=== PATIENT | female | born 1955 | race American Indian/Alaskan Native ===

== ENCOUNTER 2017-03-15 08:43 | Outpatient (CLI) | payer BC | END 2017-03-15 08:44 | disposition home or self-care (01) | LOC: LAB 08:43 | PROVIDERS: ATTEND Specialist | DX: C73 Malignant neoplasm of thyroid gland (principal); E89.0 Postprocedural hypothyroidism | CPT/HCPCS: 36415; 84439; 84443 ==

== ENCOUNTER 2017-04-07 09:51 | Day surgery (SDC) | payer BC ==
--- NOTE | 2017-04-07 12:16 | Anesthesia Day of Surgery ---
Anesthesia Day of Surgery - Day of Surgery Patient Examined: Yes Patient H&P Reviewed: Yes Patient is NPO: Yes
--- NOTE | 2017-04-07 12:16 | Anesthesia Consultation ---
Anesthesia Consult and Med Hx Date of service: 04/07/17 - Airway Anesthetic Teeth Evaluation: Good ROM Head & Neck: Adequate Mental/Hyoid Distance: Adequate Mallampati Class: Class II Intubation Access Assessment: Probably Good - Pulmonary Exam CTA: Yes - Cardiac Exam Cardiac Exam: RRR - Pre-Operative Health Status ASA Pre-Surgery Classification: ASA3 Proposed Anesthetic Plan: MAC - Pulmonary Hx Smoking: Yes (quit 37 years ago) - Cardiovascular System Hx Hypertension: Yes Hx Heart Attack/AMI: No Hx Valvular Heart Disease: Yes (MVP) - Central Nervous System Hx Seizures: No CVA: No - Endocrine Hx Renal Disease: No Hx Liver Disease: No Hx Non-Insulin Dependent Diabetes: No Hx Thyroid Disease: No (Lupus) Hx Hypothyroidism: Yes (thyroid CA s/p thyroidectomy) - Hematic Hx Anemia: Yes Hx Sickle Cell Disease: No - Other Systems Hx Cancer: Yes (thyroid ca) - Additional Comments Anesthesia Medical History Comments: PONV
[2017-04-07] MEDS ORDERED: DIPRIVAN 10 MG/ML IV ONE ×2 (12:18)
[2017-04-07 13:16] VITALS: BP 144/80
--- NOTE | 2017-04-07 13:23 | Post Anesthesia Evaluation ---
- Post Anesthesia Evaluation Patient Participated: Yes Airway Patent: Yes Stable Respiratory Function: Yes Nausea/Vomiting: No Temp > 96.8F: Yes Pain Manageable: Yes Adequeate Hydration: Yes Anesthesia Complications: No Block Receding Appropriately: Not Applicable Patient on Ventilator: No
[2017-04-07] MEDS ORDERED: NACL 0.9% 1000 ML 1,000 ML IV SCH (14:00)
--- NOTE | 2017-04-07 16:04 | History and Physical Report ---
HISTORY OF PRESENT ILLNESS: This is a 61-year-old female with an underlying history of hypertension, prior history of thyroid cancer for which she has had surgery and radiation treatment. She has a family history of cancer. The patient's father had prostate cancer. At present, she is having changes in her bowel habits and because of her age being assessed for possible colon polyps. She is said to have had colon polyps in the past that were removed several years ago. ALLERGIES: No known allergies. No cardiac issues. SOCIAL HISTORY: Denies any history of smoking or alcohol use. Has had a flu shot. MEDICATIONS: She has a history of taking MiraLax, Synthroid, verapamil, Maxzide, calcitriol, Plaquenil, and Calvid. PHYSICAL EXAMINATION: VITAL SIGNS: Weight is 101 pounds, height is 5 feet 6 inches, pulse is 77, blood pressure 155/94, afebrile. HEENT: Exam showed no JVD. LUNGS: Clear to auscultation. CARDIOVASCULAR: Normal. ABDOMEN: Soft. Bowel sounds present. NEUROLOGIC: The patient is alert and oriented. ASSESSMENT: Changes in bowel habits, history of colon polyps, prior history of thyroid cancer, family history of prostate cancer, hypertension, hypothyroidism. PLAN: To do a colonoscopy at [facility] on 04/07/2017. JOB# [id number] OLIVIA/YESY
--- NOTE | 2017-04-07 17:21 | Operative Report ---
PROCEDURE: Colonoscopy. INDICATIONS: This is a 61-year-old female with underlying history of thyroid cancer for which she has had thyroid surgery. Family history of cancer. The patient's father had prostate cancer. She has lately been noticing some changes in her bowel habit. She also has an underlying history of hypertension and hypothyroidism. Colonoscopy was done to assess for the problem. Procedure was done. DESCRIPTION OF PROCEDURE: After informed consent with MAC anesthesia. Initial rectal exam was unremarkable. The instrument was passed through the rectum onto the cecum, which was identified ileocecal valve and appendiceal orifice. Visualization was fair. There was some fluid within the lumen of the colon that was suctioned out. The patient appeared to have melanosis coli secondary to using laxatives containing senna on a long-term basis. The cecum, ascending colon, transverse colon, descending colon and sigmoid showed normal mucosa. There was no evidence of any polyps, colitis or diverticular disease other than for the presence of melanosis coli in the rectum showed some minor internal hemorrhoids on the retroverted view. IMPRESSION: Colon polyp screening. No colon polyps noted. Presence of melanosis coli. No evidence of any diverticular disease or colitis. Minor internal hemorrhoids. PLAN: To have the patient check her thyroid function and see if the thyroid medications need to be adjusted. Otherwise, the patient will be tried with some Amitiza or Linzess to help with her long complains of chronic constipation. JOB# [id number] OLIVIA/YESY
== END 2017-04-07 09:52 | disposition home or self-care (01) ==
LOC: GIO 09:51
DX: K63.89 Other specified diseases of intestine (principal); K64.8 Other hemorrhoids; I10 Essential (primary) hypertension; E03.9 Hypothyroidism, unspecified; D64.9 Anemia, unspecified; Z85.850 Personal history of malignant neoplasm of thyroid; Z87.891 Personal history of nicotine dependence; Z80.42 Family history of malignant neoplasm of prostate; Z79.899 Other long term (current) drug therapy
CPT/HCPCS: 45378; J2704; J7030

== ENCOUNTER 2017-06-30 10:07 | Outpatient (CLI) | payer BC ==
[2017-06-30 10:39] LABS: Hemoglobin 10.4 gm/dl (10.1-14.3); Mean Corpuscular HGB Conc 33 % (30-34); Mean Corpuscular Hemoglobin 28 pg (28-32); Mean Corpuscular Volume 85 fl (79-97); Platelet Count 265 K/mm3 (140-440); Red Blood Count 3.75 M/mm3 (3.65-5.03); Red Cell Distribution Width 15.8 % (13.2-15.2); White Blood Count 4.3 K/mm3 (4.5-11.0)
[2017-06-30 10:50] LABS: Bilirubin,Urine NEG (Negative); Blood,Urine SM (Negative); Ketones,Urine NEG (Negative); Leukocyte Esterase,Urine NEG (Negative); Mucus,Urine FEW /HPF; Nitrite,Urine NEG (Negative); Protein,Urine <15 mg/dL mg/dL (Negative); Urobilinogen,Urine < 2.0 mg/dL (<2.0)
[2017-06-30 11:05] LABS: Erythrocyte Sedimentation Rate 78 mm/Hr (0-20)
[2017-06-30 11:06] LABS: Alanine Aminotransferase 13 units/L (7-56); Albumin 3.8 g/dL (3.9-5); Albumin/Globulin Ratio 1.1 %; Alkaline Phosphatase 66 units/L (35-129); Anion Gap 18 mmol/L; BUN/Creatinine Ratio 26.66; Blood Urea Nitrogen 16 mg/dL (7-17); Carbon Dioxide 25 mmol/L (22-30); Chloride 103.5 mmol/L (98-107); Glucose 77 mg/dL (65-100); Potassium 4.3 mmol/L (3.6-5.0); Sodium 142 mmol/L (137-145); Total Protein 7.4 g/dL (6.3-8.2)
== END 2017-06-30 10:08 | disposition home or self-care (01) ==
LOC: LAB 10:07
PROVIDERS: ATTEND Internal Medicine Rheumatology
DX: I10 Essential (primary) hypertension (principal); M13.0 Polyarthritis, unspecified; M32.9 Systemic lupus erythematosus, unspecified; E78.00 Pure hypercholesterolemia, unspecified; E03.9 Hypothyroidism, unspecified; D64.9 Anemia, unspecified; Z87.891 Personal history of nicotine dependence
CPT/HCPCS: 36415; 80053; 81001; 85027; 85652

== ENCOUNTER 2017-08-11 11:45 | Outpatient (CLI) | payer BC ==
--- NOTE | 2017-08-11 12:18 | XRay Report ---
RIGHT HIP, 2 views: History: Right hip pain. The bony architecture is intact without evidence of fracture or dislocation. No significant soft tissue abnormality is seen. IMPRESSION: Normal right hip.
[2017-08-11 12:54] LABS: Basophils % (Auto) 1.1 % (0.0-1.8); Eosinophils % (Auto) 1.9 % (0.0-4.3); Hematocrit 32.2 % (30.3-42.9); Hemoglobin 10.8 gm/dl (10.1-14.3); Mean Corpuscular HGB Conc 34 % (30-34); Mean Corpuscular Hemoglobin 28 pg (28-32); Mean Corpuscular Volume 83 fl (79-97); Platelet Count 271 K/mm3 (140-440); Red Blood Count 3.87 M/mm3 (3.65-5.03); Red Cell Distribution Width 15.7 % (13.2-15.2); White Blood Count 4.7 K/mm3 (4.5-11.0)
[2017-08-11 13:12] LABS: Alanine Aminotransferase 13 units/L (7-56); Albumin 4.2 g/dL (3.9-5); Albumin/Globulin Ratio 1.1 %; Alkaline Phosphatase 64 units/L (35-129); Anion Gap 18 mmol/L; Blood Urea Nitrogen 22 mg/dL (7-17); Calcium 9.9 mg/dL (8.4-10.2); Carbon Dioxide 26 mmol/L (22-30); Chloride 102.1 mmol/L (98-107); Glucose 86 mg/dL (65-100); Potassium 3.7 mmol/L (3.6-5.0); Sodium 142 mmol/L (137-145); Total Protein 7.9 g/dL (6.3-8.2)
[2017-08-11 13:28] LABS: Cholesterol 127 mg/dL (50-199); HDL Cholesterol 46 mg/dL (40-59); LDL Cholesterol,Direct 72 mg/dL (50-130); Triglycerides 47 mg/dL (2-149)
== END 2017-08-11 11:46 | disposition home or self-care (01) ==
LOC: XRAY 11:45
PROVIDERS: ATTEND Nurse Practitioner
DX: Z01.419 Encounter for gynecological examination (general) (routine) without abnormal findings (principal); I10 Essential (primary) hypertension; E78.2 Mixed hyperlipidemia; M25.551 Pain in right hip; E03.9 Hypothyroidism, unspecified; Z87.891 Personal history of nicotine dependence
CPT/HCPCS: 36415; 80053; 80061; 85025

== ENCOUNTER 2017-11-08 10:12 | Outpatient (CLI) | payer BC ==
[2017-11-08 11:08] LABS: Hematocrit 33.4 % (30.3-42.9); Mean Corpuscular HGB Conc 33 % (30-34); Mean Corpuscular Hemoglobin 28 pg (28-32); Mean Corpuscular Volume 85 fl (79-97); Platelet Count 286 K/mm3 (140-440); Red Blood Count 3.95 M/mm3 (3.65-5.03); Red Cell Distribution Width 16.2 % (13.2-15.2); White Blood Count 5.1 K/mm3 (4.5-11.0)
[2017-11-08 11:41] LABS: Erythrocyte Sedimentation Rate 57 mm/Hr (0-20)
--- NOTE | 2017-11-08 12:28 | Mammography Report ---
BILATERAL MAMMOGRAM: FINDINGS: The breasts are almost entirely fat (<25% glandular). No mass, distortion, suspicious calcification, or skin change is seen. No significant change when compared to prior examination in September 2016. CAD was utilized. IMPRESSION: Negative mammogram. There is no mammographic evidence of malignancy. RECOMMENDATION: Follow-up per ACS guidelines. BI-RADS CATEGORY: 1 = Negative ACR BI-RADS MAMMOGRAPHIC CODES: 0 = Needs additional imaging evaluation; 1 = Negative; 2 = Benign; 3 = Probably benign; 4 = Suspicious; 5 = Malignant; 6 = Known biopsy-proven malignancy COMMENT: 1. Dense breast tissue, i.e., adenosis, fibrocystic changes, etc., may obscure an underlying neoplasm. 2. Approximately 10% of cancers are not detected with mammography. 3. A negative mammography report should not delay biopsy if a clinically suspicious mass is present. COMMENT: Patient follow-up letters are generated in [employer].
== END 2017-11-08 10:13 | disposition home or self-care (01) ==
LOC: MAMMO 10:12
PROVIDERS: ATTEND Internal Medicine
DX: Z12.31 Encounter for screening mammogram for malignant neoplasm of breast (principal); M32.9 Systemic lupus erythematosus, unspecified; I10 Essential (primary) hypertension; E78.00 Pure hypercholesterolemia, unspecified; E03.9 Hypothyroidism, unspecified; D64.9 Anemia, unspecified; Z87.891 Personal history of nicotine dependence
CPT/HCPCS: 36415; 82565; 85027; 85652; G0202; 77067

== ENCOUNTER → 2018-07-06 | Outpatient (CLI) | payer BC ==
[2018-07-06 11:54] LABS: Hemoglobin 10.8 gm/dl (10.1-14.3); Mean Corpuscular HGB Conc 34 % (30-34); Mean Corpuscular Hemoglobin 29 pg (28-32); Mean Corpuscular Volume 85 fl (79-97); Platelet Count 267 K/mm3 (140-440); Red Blood Count 3.76 M/mm3 (3.65-5.03); Red Cell Distribution Width 16.6 % (13.2-15.2)
[2018-07-06 12:35] LABS: Free T4 (Free Thyroxine) 1.95 ng/dL (0.76-1.46)
== END | disposition home or self-care (01) ==
LOC: LAB 11:16
PROVIDERS: ATTEND Internal Medicine Rheumatology
DX: M32.9 Systemic lupus erythematosus, unspecified (principal); I10 Essential (primary) hypertension; E78.00 Pure hypercholesterolemia, unspecified; E03.9 Hypothyroidism, unspecified; Z87.891 Personal history of nicotine dependence; Z90.89 Acquired absence of other organs
CPT/HCPCS: 36415; 82565; 82728; 84439; 84443; 85027; 86800

== ENCOUNTER 2018-11-29 10:00 | Outpatient (CLI) | payer BC ==
--- NOTE | 2018-11-29 16:32 | Mammography Report ---
BILATERAL DIGITAL SCREENING MAMMOGRAM with CAD: 11/29/18 10:00:00 CLINICAL: Routine screening. COMPARISON:11/08/17 and 09/22/16 FINDINGS: The breasts are almost entirely fatty.A left periareolar linear asymmetry is not not significantly changed compared to previous exams. No mass, architectural distortion or suspicious calcifications. IMPRESSION: No mammographic evidence of malignancy. BI-RADS CATEGORY: 2 - - Benign RECOMMENDATION: Routine mammographic screening in one year. COMMENT: Patient follow-up letters are generated by our [employer] application.
== END 2018-11-29 10:01 | disposition home or self-care (01) ==
LOC: SPVWC 10:00
PROVIDERS: ATTEND Internal Medicine
DX: Z12.31 Encounter for screening mammogram for malignant neoplasm of breast (principal); I10 Essential (primary) hypertension; E78.00 Pure hypercholesterolemia, unspecified; E03.9 Hypothyroidism, unspecified; Z87.891 Personal history of nicotine dependence
CPT/HCPCS: 77067

== ENCOUNTER 2019-03-07 10:24 | Outpatient (CLI) | payer BC ==
[2019-03-07 11:06] LABS: Hematocrit 32.2 % (30.3-42.9); Hemoglobin 10.6 gm/dl (10.1-14.3); Mean Corpuscular HGB Conc 33 % (30-34); Mean Corpuscular Volume 86 fl (79-97); Platelet Count 305 K/mm3 (140-440); Red Blood Count 3.74 M/mm3 (3.65-5.03); Red Cell Distribution Width 16.9 % (13.2-15.2)
[2019-03-07 11:36] LABS: Erythrocyte Sedimentation Rate 62 mm/Hr (0-20)
== END 2019-03-07 10:25 | disposition home or self-care (01) ==
LOC: LAB 10:24
PROVIDERS: ATTEND Internal Medicine Rheumatology
DX: M32.9 Systemic lupus erythematosus, unspecified (principal); I10 Essential (primary) hypertension; E78.00 Pure hypercholesterolemia, unspecified; E03.9 Hypothyroidism, unspecified; Z87.891 Personal history of nicotine dependence
CPT/HCPCS: 36415; 82565; 85027; 85652

== ENCOUNTER 2019-03-22 07:28 | Outpatient (CLI) | payer BC ==
--- NOTE | 2019-03-22 09:02 | Ultrasound Report ---
THYROID ULTRASOUND INDICATION: Malignant neoplasm of thyroid gland. Thyroidectomy in 2006 for thyroid carcinoma. COMPARISON: None similar. FINDINGS: Grayscale and color-flow thyroid sonography demonstrates surgically absent thyroid gland. No suspicious abnormal mass or fluid collection noted. Two small lymph nodes incidentally seen, approximately 1.2 x 0.7 cm on the right, image 13 and a slightly elongated, approximately 1.5 x 0.5 cm on the left, image 22. CONCLUSION: No acute significant sonographic abnormality in this patient with prior thyroidectomy, as described. Please correlate. Thank you for the opportunity to participate in this patient's care.
[2019-03-22 09:32] LABS: Alanine Aminotransferase 13 units/L (7-56); Albumin 4.2 g/dL (3.9-5); BUN/Creatinine Ratio 20; Blood Urea Nitrogen 12 mg/dL (7-17); Calcium 9.2 mg/dL (8.4-10.2); Hemolysis Index 2
--- NOTE | 2019-03-22 12:29 | XRay Report ---
RIGHT HIP RADIOGRAPHS INDICATION: Pain. COMPARISON: None similar. FINDINGS: An AP pelvic radiograph with frog-leg projection of the right hip demonstrate intact articulation. Mild right femoral head degenerative spurring laterally. Imaged bilateral SI joints appear intact. Nonobstructive bowel gas pattern. CONCLUSION: No acute radiographic abnormality with mild right hip degenerative changes suspected. Thank you for the opportunity to participate in this patient's care.
--- NOTE | 2019-03-22 12:32 | XRay Report ---
CERVICAL SPINE RADIOGRAPHS INDICATION: Shoulder pain. COMPARISON: None similar. FINDINGS: AP, lateral, open mouth and swimmer's views to evaluate cervical spine demonstrate normal imaged dens with symmetric lateral masses. Few radiopaque dental material. Intact craniocervical articulation on the lateral view with adequate visualization upto T1. Normal vertebral body stature, alignment and disc heights. Slight C4 and C5 degenerative spurring. Small bilateral cervical ribs. Few left lower neck surgical clips. Cardiomegaly not excluded. CONCLUSION: No acute cervical spine radiographic abnormality in this patient with small cervical ribs and left lower neck surgical clips, as described. Please correlate. Thank you for the opportunity to participate in this patient's care.
== END 2019-03-22 07:29 | disposition home or self-care (01) ==
LOC: US 07:28
PROVIDERS: ATTEND Nurse Practitioner Family
DX: C73 Malignant neoplasm of thyroid gland (principal); M25.511 Pain in right shoulder; M25.551 Pain in right hip; M54.12 Radiculopathy, cervical region; I10 Essential (primary) hypertension; E78.00 Pure hypercholesterolemia, unspecified; E89.0 Postprocedural hypothyroidism
CPT/HCPCS: 36415; 72040; 76536; 80053; 84439; 84443; 86800

== ENCOUNTER 2019-05-08 09:33 | Outpatient (CLI) | payer BC ==
--- NOTE | 2019-05-08 09:55 | XRay Report ---
RIGHT SHOULDER, 3 VIEWS: HISTORY: right shoulder pain. Bone mineralization is borderline. There is suggestion of a subtle cortical defect in the lateral humeral head on the externally rotated view. This may represent a small avulsion fracture. This is at the expected insertion site of the supraspinatus tendon. Mild osteoarthritic changes are identified. No evidence for dislocation, ligamentous injury or bone lesion. IMPRESSION: Mild osteoarthritis. Suggestion of a nondisplaced avulsion injury in the lateral humeral head as described. Please correlate with the patient. This could be further evaluated with MRI right shoulder without contrast if needed.
== END 2019-05-08 09:34 | disposition home or self-care (01) ==
LOC: XRAY 09:33
PROVIDERS: ATTEND Internal Medicine
DX: M19.011 Primary osteoarthritis, right shoulder (principal); E78.00 Pure hypercholesterolemia, unspecified; I10 Essential (primary) hypertension; E03.9 Hypothyroidism, unspecified

== ENCOUNTER 2019-06-23 12:24 | Outpatient (CLI) | payer BC ==
[2019-06-23 12:48] LABS: Hematocrit 32.9 % (30.3-42.9); Mean Corpuscular HGB Conc 34 % (30-34); Mean Corpuscular Volume 86 fl (79-97); Platelet Count 271 K/mm3 (140-440); Red Blood Count 3.84 M/mm3 (3.65-5.03); Red Cell Distribution Width 16.8 % (13.2-15.2)
[2019-06-23 12:55] LABS: Bilirubin,Urine NEG (Negative); Blood,Urine NEG (Negative); Color,Urine Yellow (Yellow); Mucus,Urine FEW /HPF; Protein,Urine <15 mg/dL mg/dL (Negative); Urobilinogen,Urine < 2.0 mg/dL (<2.0)
[2019-06-23 13:09] LABS: Protein/Creatinine Ratio,Urine 0.09
[2019-06-23 13:16] LABS: Alanine Aminotransferase 12 units/L (7-56); Albumin 4.1 g/dL (3.9-5); BUN/Creatinine Ratio 15; Blood Urea Nitrogen 12 mg/dL (7-17); Calcium 9.3 mg/dL (8.4-10.2); Hemolysis Index 2
== END 2019-06-23 12:25 | disposition home or self-care (01) ==
LOC: LAB 12:24
PROVIDERS: ATTEND Internal Medicine Rheumatology
DX: M32.9 Systemic lupus erythematosus, unspecified (principal); I10 Essential (primary) hypertension; E78.00 Pure hypercholesterolemia, unspecified; E03.9 Hypothyroidism, unspecified
CPT/HCPCS: 36415; 80053; 81001; 82570; 84156; 85027; 85652; 87086

== ENCOUNTER 2019-06-27 14:02 | Outpatient (CLI) | payer BC ==
[2019-06-27 14:43] LABS: Chol/HDL Ratio 2.66 %
== END 2019-06-27 14:03 | disposition home or self-care (01) ==
LOC: LAB 14:02
PROVIDERS: ATTEND Internal Medicine
DX: E78.2 Mixed hyperlipidemia (principal); E78.00 Pure hypercholesterolemia, unspecified; I10 Essential (primary) hypertension; E03.9 Hypothyroidism, unspecified
CPT/HCPCS: 36415; 80061

== ENCOUNTER 2019-09-29 09:05 | Outpatient (CLI) | payer BC ==
[2019-09-29 09:37] LABS: Hematocrit 30.4 % (30.3-42.9); Hemoglobin 10.3 gm/dl (10.1-14.3); Mean Corpuscular HGB Conc 34 % (30-34); Mean Corpuscular Volume 86 fl (79-97); Platelet Count 266 K/mm3 (140-440); Red Blood Count 3.53 M/mm3 (3.65-5.03); Red Cell Distribution Width 16.6 % (13.2-15.2)
[2019-09-29 09:47] LABS: Bilirubin,Urine NEG (Negative); Blood,Urine SM (Negative); Color,Urine Yellow (Yellow); Mucus,Urine 2+ /HPF; Protein,Urine <15 mg/dL mg/dL (Negative); Urobilinogen,Urine < 2.0 mg/dL (<2.0)
[2019-09-29 09:49] LABS: Creatinine,Urine 193.9 mg/dL (0.1-20.0); Protein/Creatinine Ratio,Urine 0.09
[2019-09-29 10:06] LABS: Erythrocyte Sedimentation Rate 60 mm/Hr (0-20)
== END 2019-09-29 09:06 | disposition home or self-care (01) ==
LOC: LAB 09:05
PROVIDERS: ATTEND Internal Medicine Rheumatology
DX: M32.9 Systemic lupus erythematosus, unspecified (principal); Z87.891 Personal history of nicotine dependence; E03.9 Hypothyroidism, unspecified
CPT/HCPCS: 36415; 81001; 82565; 82570; 84156; 85027; 85652

== ENCOUNTER 2019-12-28 08:09 | Outpatient (CLI) | payer BC ==
[2019-12-28 11:41] LABS: Basophils # (Auto) 0.1 K/mm3 (0.0-0.1); Basophils % (Auto) 1.2 % (0.0-1.8); Eosinophils # (Auto) 0.2 K/mm3 (0.0-0.4); Eosinophils % (Auto) 4.1 % (0.0-4.3); Hematocrit 31.4 % (30.3-42.9); Hemoglobin 10.6 gm/dl (10.1-14.3); Lymphocytes # (Auto) 1.6 K/mm3 (1.2-5.4); Lymphocytes % (Auto) 32.6 % (13.4-35.0); Mean Corpuscular HGB Conc 34 % (30-34); Mean Corpuscular Volume 86 fl (79-97); Monocytes # (Auto) 0.4 K/mm3 (0.0-0.8); Monocytes % (Auto) 7.8 % (0.0-7.3); Platelet Count 280 K/mm3 (140-440); Red Blood Count 3.66 M/mm3 (3.65-5.03); Red Cell Distribution Width 16.6 % (13.2-15.2)
[2019-12-28 11:44] LABS: Bilirubin,Urine NEG (Negative); Blood,Urine MOD (Negative); Color,Urine Yellow (Yellow); Mucus,Urine FEW /HPF; Protein,Urine <15 mg/dL mg/dL (Negative); Urobilinogen,Urine < 2.0 mg/dL (<2.0)
[2019-12-28 12:41] LABS: Alanine Aminotransferase 13 units/L (7-56); Albumin 4.2 g/dL (3.9-5); BUN/Creatinine Ratio 18; Blood Urea Nitrogen 14 mg/dL (7-17); Calcium 9.6 mg/dL (8.4-10.2); Chol/HDL Ratio 3.03 %; HDL Cholesterol 56 mg/dL (40-59); Hemolysis Index 2; LDL Cholesterol,Direct 111 mg/dL (50-130)
== END 2019-12-28 08:10 | disposition home or self-care (01) ==
LOC: LAB 08:09
PROVIDERS: ATTEND Internal Medicine
DX: M32.9 Systemic lupus erythematosus, unspecified (principal); I10 Essential (primary) hypertension; E78.2 Mixed hyperlipidemia
CPT/HCPCS: 36415; 80053; 80061; 81001; 85025; 85652

== ENCOUNTER 2020-01-01 10:20 | Outpatient (CLI) | payer BC ==
--- NOTE | 2020-01-01 14:10 | Mammography Report ---
DIGITAL SCREENING MAMMOGRAM WITH CAD, 01/01/2020 INDICATION: Routine screening mammography. TECHNIQUE: Digital bilateral 2D mammography was obtained in the craniocaudal and mediolateral obliq ue projections. This examination was interpreted with the benefit of Computer-Aided Detection analysi s. COMPARISON: 11/29/2018 FINDINGS: Breast Density: The breasts are almost entirely fatty. There is no evidence of dominant mass, suspicious calcifications or architectural distortion in eithe r breast. IMPRESSION: No mammographic evidence of malignancy. Follow up recommendation: Routine yearly BI-RADS Category 1: Negative. A "normal" or negative report should not discourage follow up or biopsy of a clinically significant f inding. A written summary of these findings will be mailed to the patient. The patient will be entered into a mammography reporting system which will generate a reminder letter for the patient's next appointmen t at the appropriate interval. The [employer] recommends yearly mammograms starting at age 40 and continuing as l luba as a woman is in good health. Breast MRI is recommended for women with an approximate 20-25% or greater lifetime risk of breast cancer, including women with a strong family history of breast or ova daniela cancer or who have been treated for Hodgkin's disease. Signer Name: Harsha Germain MD Signed: 01/01/2020 2:06 PM Workstation Name: [id number]
== END 2020-01-01 10:21 | disposition home or self-care (01) ==
LOC: MAMMO 10:20
PROVIDERS: ATTEND Internal Medicine
DX: Z12.31 Encounter for screening mammogram for malignant neoplasm of breast (principal); N64.89 Other specified disorders of breast
CPT/HCPCS: 77067

== ENCOUNTER 2020-01-29 12:05 | Outpatient (CLI) | payer BC | END 2020-01-29 12:06 | disposition home or self-care (01) | LOC: LAB 12:05 | PROVIDERS: ATTEND Obstetrics & Gynecology | DX: Z01.419 Encounter for gynecological examination (general) (routine) without abnormal findings (principal) | CPT/HCPCS: 36415; 87591 ==

== ENCOUNTER 2020-02-05 08:03 | Emergency (ER) | payer BC, OTHER ==
[2020-02-05] MEDS ORDERED: IBUPROFEN 600 MG TAB PO ONE (08:56)
--- NOTE | 2020-02-05 09:02 | Emergency Department Report ---
ED Fall HPI - General Chief Complaint: Fall Stated Complaint: FALL Time Seen by Provider: 02/05/20 08:42 Source: patient Mode of arrival: Ambulatory Limitations: No Limitations - History of Present Illness Initial Comments: This is a 64-year-old -British female who presents to the emergency room with low back pain status post fall 1 hour prior to arrival. Patient states she had just arrived to work and attempt to sit in a chair when it slipped from behind her causing her to land on her buttocks hitting her left knee on something. Past medical history of lupus, hypertension, and sciatica of right lower extremity. Patient states she always have pain in her right lower leg radiating from her right buttocks to right above right thigh but now starting to experience pain in left thigh. Reports pain is worse with movement. 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 Fall Witnessed: yes, by living facility s Place Fall Occurred: work Loss of Consciousness: none Prolonged Down Time?: no Symptoms Prior to Fall: none Location: buttocks (Bilateral) Location - Extremities: Left: Leg Severity: moderate Severity scale (0 -10): 7 Quality: burning, aching Associated Symptoms: denies - Related Data Home Medications Medication Instructions Recorded Confirmed Last Taken Synthroid 125 mcg PO DAILY 08/04/15 04/07/17 04/07/17 Triamter/Hctz 37.5-25 mg 0.5 tab PO DAILY 08/04/15 04/07/17 04/07/17 Verapamil ER 120 mg PO DAILY 08/04/15 04/07/17 04/06/17 Calcitriol 1 tab PO DAILY 04/07/17 04/07/17 04/07/17 Caltrate 600+D Plus Tablet 1 tab PO DAILY 04/07/17 04/07/17 04/06/17 Meloxicam 15 mg PO DAILY 04/07/17 04/07/17 04/06/17 Plaquenil 1 tab PO DAILY 04/07/17 04/07/17 04/07/17 Previous Rx's Medication Instructions Recorded Last Taken Type Amoxicillin [Trimox CAP] 500 mg PO Q8H #15 capsule 08/04/15 Unknown Rx Naproxen [Naprosyn] 500 mg PO BID PRN #30 tablet 02/05/20 Unknown Rx methOCARBAMOL [Robaxin TAB] 500 mg PO TID PRN #20 tablet 02/05/20 Unknown Rx Allergies Allergy/AdvReac Type Severity Reaction Status Date / Time No Known Allergies Allergy Verified 08/04/15 05:23 ED Review of Systems ROS: Stated complaint: FALL Other details as noted in HPI Constitutional: denies: chills, fever Respiratory: denies: cough, shortness of breath, wheezing Cardiovascular: denies: chest pain, palpitations Gastrointestinal: denies: abdominal pain, nausea, diarrhea Musculoskeletal: back pain. denies: joint swelling, arthralgia Skin: denies: rash, lesions Neurological: denies: headache, weakness, paresthesias Psychiatric: denies: anxiety, depression ED Past Medical Hx - Past Medical History Previous Medical History?: Yes Hx Hypertension: Yes Hx Heart Attack/AMI: No Hx Diabetes: Yes Hx Liver Disease: No Hx Renal Disease: No Hx Sickle Cell Disease: No Hx Arthritis: Yes Hx Seizures: No Additional medical history: LUPUS,BORDERLINE ANEMIA - Surgical History Past Surgical History?: Yes Additional Surgical History: THYROIDECTOMY,CS,GANGLION CYST SURGERY lt ear,HEMORRHOIDECTOMY - Social History Smoking Status: Never Smoker Substance Use Type: None - Medications Home Medications: Home Medications Medication Instructions Recorded Confirmed Last Taken Type Amoxicillin [Trimox CAP] 500 mg PO Q8H #15 capsule 08/04/15 04/07/17 Unknown Rx Synthroid 125 mcg PO DAILY 08/04/15 04/07/17 04/07/17 History Triamter/Hctz 37.5-25 mg 0.5 tab PO DAILY 08/04/15 04/07/17 04/07/17 History Verapamil ER 120 mg PO DAILY 08/04/15 04/07/17 04/06/17 History Calcitriol 1 tab PO DAILY 04/07/17 04/07/17 04/07/17 History Caltrate 600+D Plus Tablet 1 tab PO DAILY 04/07/17 04/07/17 04/06/17 History Meloxicam 15 mg PO DAILY 04/07/17 04/07/17 04/06/17 History Plaquenil 1 tab PO DAILY 04/07/17 04/07/17 04/07/17 History Naproxen [Naprosyn] 500 mg PO BID PRN #30 tablet 02/05/20 Unknown Rx methOCARBAMOL [Robaxin TAB] 500 mg PO TID PRN #20 tablet 02/05/20 Unknown Rx ED Physical Exam - General Limitations: No Limitations General appearance: alert, in no apparent distress, obese - Respiratory Respiratory exam: Present: normal lung sounds bilaterally. Absent: respiratory distress - Cardiovascular Cardiovascular Exam: Present: regular rate, normal rhythm. Absent: systolic murmur, diastolic murmur, rubs, gallop - GI/Abdominal GI/Abdominal exam: Present: soft, normal bowel sounds. Absent: distended, tenderness, guarding, rebound, rigid - Extremities Exam Extremities exam: Present: normal inspection - Back Exam Back exam: Present: full ROM, paraspinal tenderness (L2, L3, L4 ttp, no stepoff or deformity), other (positive straight leg test on left leg). Absent: muscle spasm, vertebral tenderness, rash noted - Neurological Exam Neurological exam: Present: alert, oriented X3, normal gait - Psychiatric Psychiatric exam: Present: normal affect, normal mood - Skin Skin exam: Present: warm, dry, intact, normal color. Absent: rash ED Course Vital Signs 02/05/20 10:51 Temperature 98.8 F Pulse Rate 77 Respiratory 20 Rate Blood Pressure 128/79 [Left] O2 Sat by Pulse 98 Oximetry ED Medical Decision Making - Radiology Data Radiology results: report reviewed LUMBAR SPINE 2 VIEWS INDICATION: Low back pain, fall. COMPARISON: No relevant prior imaging study available. FINDINGS: VERTEBRAE: No acute fracture. Mild dextroscoliosis with grade 1 anterolisthesis at L4-L5. DISC SPACES: Multilevel mild to moderate discogenic degenerative changes. FACET JOINTS: Multilevel facet hypertrophy is most significant at L5-S1. SOFT TISSUES: No significant abnormality. ADDITIONAL FINDINGS: A lap band is partially visualized. IMPRESSION: 1. No acute findings. 2. Mild to moderate lumbar spondylosis. 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 Patient is nontoxic appearing and stable. Vitals are normal. Past medical history of lupus, sciatica of right leg, and hypertension. Obtained x-ray of L- spine with no acute findings. Mild to moderate lumbar spondylosis. Given history, exam, and work-up, there is low suspicion for spine fracture. Positive straight leg test on the left leg. Patient instructed of symptoms being self- limiting. Start muscle relaxants and NSAIDs. They have been given strict return her precautions for delayed possible symptoms. Patient discharged with prompt follow-up with primary care physician. Critical care attestation.: If time is entered above; I have spent that time in minutes in the direct care of this critically ill patient, excluding procedure time. ED Disposition Clinical Impression: Low back pain Qualifiers: Chronicity: acute Back pain laterality: midline Sciatica presence: with sciatica Sciatica laterality: sciatica of left side Qualified Code(s): M54.42 - Lumbago with sciatica, left side Fall Qualifiers: Encounter type: initial encounter Qualified Code(s): W19.XXXA - Unspecified fall, initial encounter Disposition: TO HOME OR SELFCARE Is pt being admited?: No Condition: Stable Instructions: Sciatica (ED), Low Back Strain (ED), Lumbar Radiculopathy (ED) Additional Instructions: Rest Use ice or heat on affected area for 20 minutes and off for 2 hours. Take pain medication as needed for pain. Don't drive or operate heavy machinery while taking muscle relaxers because they may cause drowsiness. Follow up with Primary Care Provider in 2-3 days. Prescriptions: Naproxen [Naprosyn] 500 mg PO BID PRN #30 tablet PRN Reason: Pain , Severe (7-10) methOCARBAMOL [Robaxin TAB] 500 mg PO TID PRN #20 tablet PRN Reason: Muscle Spasm Referrals: DENISE HEATH JR, MD [Staff Physician] - 3-5 Days Forms: Work/School Release Form(ED) Time of Disposition: 10:33
--- NOTE | 2020-02-05 10:01 | XRay Report ---
LUMBAR SPINE 2 VIEWS INDICATION: Low back pain, fall. COMPARISON: No relevant prior imaging study available. FINDINGS: VERTEBRAE: No acute fracture. Mild dextroscoliosis with grade 1 anterolisthesis at L4-L5. DISC SPACES: Multilevel mild to moderate discogenic degenerative changes. FACET JOINTS: Multilevel facet hypertrophy is most significant at L5-S1. SOFT TISSUES: No significant abnormality. ADDITIONAL FINDINGS: A lap band is partially visualized. IMPRESSION: 1. No acute findings. 2. Mild to moderate lumbar spondylosis. Signer Name: Jose M Wiggins MD Signed: 02/05/2020 9:56 AM Workstation Name: [id number]
[2020-02-05 10:52] VITALS: BP 128/79
== END 2020-02-05 10:51 | disposition home or self-care (01) ==
LOC: ED 08:03
DX: M54.41 Lumbago with sciatica, right side (principal); M54.42 Lumbago with sciatica, left side; I10 Essential (primary) hypertension; E11.9 Type 2 diabetes mellitus without complications; M19.91 Primary osteoarthritis, unspecified site; D64.9 Anemia, unspecified; Z98.890 Other specified postprocedural states; Z90.89 Acquired absence of other organs; Z79.2 Long term (current) use of antibiotics; Z79.899 Other long term (current) drug therapy; W17.89XA Other fall from one level to another, initial encounter; Y93.89 Activity, other specified; Y92.89 Other specified places as the place of occurrence of the external cause; Y99.8 Other external cause status
CPT/HCPCS: 72100

== ENCOUNTER 2020-02-06 09:37 | Outpatient (CLI) | payer BC ==
--- NOTE | 2020-02-06 11:02 | Ultrasound Report ---
PELVIC ULTRASOUND. HISTORY: Fibroid disease of the uterus. FINDINGS: The uterus was imaged both transabdominally and endovaginally. Size is 8.3 x 4 x 5 cm. Fund al fibroids measure 1.9 and 1.3 cm. A posterior fibroid measures 2.2 cm. A presumed submucosal fibroi d at the lower uterine segment measures 1.3 cm. The endometrial stripe is not thickened measuring 2 m m. The right and left ovaries are nonvisualized. Negative for adnexal mass or fluid. IMPRESSION: 1. Multiple uterine fibroids including a suspected submucosal fibroid. 2. Ovaries not imaged. Signer Name: Dipesh Mayo MD Signed: 02/06/2020 10:57 AM Workstation Name: [id number]
== END 2020-02-06 09:38 | disposition home or self-care (01) ==
LOC: US 09:37
PROVIDERS: ATTEND Obstetrics & Gynecology
DX: D25.0 Submucous leiomyoma of uterus (principal)
CPT/HCPCS: 76830; 76856

== ENCOUNTER 2020-03-14 07:01 | Outpatient (CLI) | payer BC ==
--- NOTE | 2020-03-14 09:15 | Fluoroscopy Report ---
Upper GI HISTORY: K21.0Gastro-esophageal reflux disease with esophagitis. Technique: Single and double contrast barium technique utilized to evaluate the esophagus, stomach, and duodenal C-loop. Findings: The patient has a gastric sleeve device which is positioned proximally in the region of the gastric cardia. At times, there was trace gastroesophageal reflux reaching the distal one third of t he esophagus. On the single contrast portion of the exam, there is also slightly delayed contrast pas bc beyond the proximal stomach but contrast did eventually pass. No mucosal irregularity, mass, mas s effect, or critical stenosis. There were no abnormal tertiary contractions as seen with dysmotili ty. Impression: Findings related to the gastric sleeve devices outlined above as well as intermittent ep isodes of trace gastroesophageal reflux. Otherwise unremarkable exam. Fluoroscopic time: 2.7 minutes Number of fluoroscopic images: 21 Signer Name: Arturo Ayers MD Signed: 03/14/2020 9:10 AM Workstation Name: [id number]
== END 2020-03-14 07:02 | disposition home or self-care (01) ==
LOC: FLUORO 07:01
PROVIDERS: ATTEND Surgery
DX: K21.0 Gastro-esophageal reflux disease with esophagitis (principal); Z97.8 Presence of other specified devices
CPT/HCPCS: 74246

== ENCOUNTER 2020-03-22 13:59 | Outpatient (CLI) | payer BC ==
[2020-03-22 14:36] LABS: Hematocrit 31.4 % (30.3-42.9); Hemoglobin 10.4 gm/dl (10.1-14.3); Mean Corpuscular HGB Conc 33 % (30-34); Mean Corpuscular Volume 86 fl (79-97); Platelet Count 288 K/mm3 (140-440); Red Blood Count 3.66 M/mm3 (3.65-5.03); Red Cell Distribution Width 15.8 % (13.2-15.2)
[2020-03-22 14:41] LABS: Creatinine,Urine 94.7 mg/dL (0.1-20.0)
[2020-03-22 14:42] LABS: Bilirubin,Urine NEG (Negative); Blood,Urine MOD (Negative); Color,Urine Yellow (Yellow); Protein,Urine <15 mg/dL mg/dL (Negative); Urobilinogen,Urine < 2.0 mg/dL (<2.0); WBC,Urine < 1.0 /HPF (0.0-6.0)
[2020-03-22 15:00] LABS: Alanine Aminotransferase 12 units/L (7-56); Albumin 4.1 g/dL (3.9-5); BUN/Creatinine Ratio 22; Blood Urea Nitrogen 22 mg/dL (7-17); Calcium 9.5 mg/dL (8.4-10.2); Hemolysis Index 11
[2020-03-22 15:08] LABS: Free T4 (Free Thyroxine) 1.92 ng/dL (0.76-1.46)
[2020-03-22 15:50] LABS: Microalbumin/Creatinine Ratio 12.6 ug/mg
== END 2020-03-22 14:00 | disposition home or self-care (01) ==
LOC: LAB 13:59
PROVIDERS: ATTEND Internal Medicine Rheumatology
DX: C73 Malignant neoplasm of thyroid gland (principal); M32.9 Systemic lupus erythematosus, unspecified; E89.0 Postprocedural hypothyroidism
CPT/HCPCS: 36415; 80053; 81001; 82043; 84439; 84443; 85027; 86800

== ENCOUNTER 2020-05-15 09:34 | Outpatient (CLI) | payer OTHER ==
--- NOTE | 2020-05-15 11:33 | Magnetic Resonance Report ---
MRI LUMBAR SPINE 05/15/2020 INDICATION / CLINICAL INFORMATION: Low back pain.. COMPARISON: None available. FINDINGS: GENERAL OBSERVATIONS: Unenhanced and enhanced MR images of the lumbar spine were obtained. Slight pat ient motion artifact is present on these images. There is a right convex scoliosis centered at the L3-4 level. Degenerative and postoperative changes are present as detailed below. [id number] ANALYSIS: L5-S1: Moderate diffuse disc bulging and prominent bilateral facet degenerative changes. Central diana l diameter is well preserved. Bilateral foraminal narrowing is present, with possible impingement upo n the exiting L5 nerve roots bilaterally. L4-5: Grade 1 anterolisthesis associated with prominent facet degenerative changes and moderate diffu se disc bulging. Moderate central canal narrowing is present. Right greater than left foraminal narro wing is present with possible right L4 nerve root impingement. L3-4: Mild diffuse disc bulging, with no evidence of stenosis or nerve root compression. L2-3: Mild symmetric diffuse disc bulging. L1-2: Mild symmetric diffuse disc bulging. BONE MARROW: Unremarkable SPINAL CORD/CAUDA EQUINA: Unremarkable PARASPINAL SOFT TISSUES: No significant abnormality. There is no abnormal contrast enhancement. IMPRESSION: Degenerative disc and facet changes as described above. Bilateral foraminal encroachment at L5-S1. Grade 1 anterolisthesis at L4-5. Signer Name: Ward Calvo MD Signed: 05/15/2020 11:29 AM Workstation Name: [id number]
== END 2020-05-15 09:35 | disposition home or self-care (01) ==
LOC: MRI 09:34
PROVIDERS: ATTEND Orthopaedic Surgery
DX: M51.27 Other intervertebral disc displacement, lumbosacral region (principal); M48.07 Spinal stenosis, lumbosacral region; M47.817 Spondylosis without myelopathy or radiculopathy, lumbosacral region
CPT/HCPCS: 72158; A9577

== ENCOUNTER 2020-07-18 06:23 | Day surgery (SDC) | payer BC, OTHER ==
[~2020-07-18 06:23] MED LIST: LACTATED RINGERS 1,000 ML IV SCH; MIDAZOLAM 2 MG/2 ML INJ IV NR; ceFAZolin/STERILE WATER 2 GM/20 ML SYRINGE IV NR
[2020-07-18] MEDS ORDERED: BACTERIOSTATIC SODIUM CHLORIDE 0.9% 30 ML VIAL INFILTRATI ONE (06:36)
[2020-07-18] MEDS ORDERED: methylPREDNISolone ACETATE 40 MG/1 ML INJ ONE (07:29)
[2020-07-18] MEDS ORDERED: LIDOCAINE (1%) 10 MG/1 ML VIAL 20 ML MDV ONE (07:29)
[2020-07-18] MEDS ORDERED: SCOPOLAMINE TRANSDERMAL PATCH 72 HR TD NR (07:29)
[2020-07-18] MEDS ORDERED: BUPIVACAINE/PF (0.5%) 5 MG/1 ML 10 ML VIAL INFILTRATI ONE ×3 (07:29→08:48)
[2020-07-18] MEDS ORDERED: SCOPOLAMINE TRANSDERMAL PATCH 72 HR TD ONE (07:33)
[2020-07-18] MEDS ORDERED: HYDROmorphone 1 MG/1 ML INJ IV PRN (07:35)
--- NOTE | 2020-07-18 07:37 | Anesthesia Day of Surgery ---
Anesthesia Day of Surgery - Day of Surgery Patient Examined: Yes Patient H&P Reviewed: Yes Patient is NPO: Yes
--- NOTE | 2020-07-18 07:37 | Anesthesia Consultation ---
Anesthesia Consult and Med Hx Date of service: 07/18/20 - Airway Anesthetic Teeth Evaluation: Good ROM Head & Neck: Adequate Mental/Hyoid Distance: Adequate Mallampati Class: Class I Intubation Access Assessment: Good - Pulmonary Exam CTA: Yes - Cardiac Exam Cardiac Exam: RRR - Pre-Operative Health Status ASA Pre-Surgery Classification: ASA3 Proposed Anesthetic Plan: MAC - Pulmonary Hx Smoking: Yes (QUIT 40YRS AGO) Hx Respiratory Symptoms: No Hx Sleep Apnea: No (MINDA PRE SCREEN LOW RISK) - Cardiovascular System Hx Hypertension: Yes Hx Heart Attack/AMI: No Hx Percutaneous Transluminal Coronary Angioplasty (PTCA): No Hx Cardia Arrhythmia: No Hx Valvular Heart Disease: Yes (MVP; asymptomatic) - Central Nervous System CVA: No Hx Back Pain: Yes - Gastrointestinal Hx Gastroesophageal Reflux Disease: No - Endocrine Hx Renal Disease: No Hx Liver Disease: No Hx Insulin Dependent Diabetes: No Hx Non-Insulin Dependent Diabetes: No Hx Hypothyroidism: Yes - Other Systems Hx Cancer: Yes (hx thyroid ca s/p thyroidectomy) Hx Obesity: Yes (BMI 34) - Additional Comments Anesthesia Medical History Comments: Hx PONV.
[2020-07-18] MEDS ORDERED: HYDROmorphone 1 MG/1 ML INJ ONE (07:55)
[2020-07-18] MEDS ORDERED: MIDAZOLAM 2 MG/2 ML INJ ONE (07:55)
[2020-07-18] MEDS ORDERED: LIDOCAINE MPF (2%) 20 MG/1 ML VIAL 5 ML ONE (07:56)
[2020-07-18] MEDS ORDERED: propofoL 200 MG/20 ML VIAL IV ONE ×2 (07:56→08:53)
[2020-07-18] MEDS ORDERED: LIDOCAINE (1%) 10 MG/1 ML VIAL 20 ML MDV INFILTRATI ONE (08:47)
[2020-07-18] MEDS ORDERED: methylPREDNISolone ACETATE 40 MG/1 ML INJ INTRA-ARTI ONE (08:47)
[2020-07-18] MEDS ORDERED: WATER FOR IRRIG STERILE 1,500 ML BOTTLE IR ONE (08:48)
[2020-07-18] MEDS ORDERED: ONDANSETRON 4 MG/2 ML INJ ONE (09:12)
--- NOTE | 2020-07-18 09:23 | Procedure Note ---
Date of procedure: 07/18/20 Pre-op diagnosis: Chronic low back pain Post-op diagnosis: same Procedure: Lumbar radiofrequency ablation at the [right] L2-5 Procedure The patient was brought to the OR and placed on the Ivan table prone with a pillow place underneath the abdomen to straighten out the lumbar spine next the lumbar spine area was prepped and draped in the usual sterile manner. A timeout procedure done to identify the patient and correct operative site Using C-arm fluoroscopy 4 lumbar pain management introducers placed in the area near the superior articular process junctions to the transverse processes AP and lateral views were used to confirm correct placement of the probes. Next motor nerves were checked to ensure that we were not next to a motor branch following this local anesthetic was used to deaden the area followed by radiofrequency ablation of the medial branch of the dorsal rami of L2 through L5 levels. This step repeated for each level until we had perform all four spots. At the completion of the third and final ablation the patient was awakened and was taken to postanesthesia recovery in a stable condition, there were no complications Anesthesia: MAC Surgeon: STEWART DUMONT Estimated blood loss: minimal Pathology: none Condition: stable Disposition: PACU
[2020-07-18] MEDS ORDERED: PROMETHAZINE 25 MG TAB PO PRN (11:00)
[2020-07-18 11:01] VITALS: BP 136/78
--- NOTE | 2020-07-18 11:44 | XRay Report ---
INTRAOPERATIVE FLUOROSCOPY: LUMBAR SPINE 2 FLUOROSCOPIC IMAGES INDICATION / CLINICAL INFORMATION: LOWER BACK PAIN. TECHNIQUE: Intraoperative spot images were obtained during the procedure. FINDINGS: 4 needles are positioned within the right L2, L3, L4 and L5 pedicles Fluoroscopy Time: 38 seconds. Fluoroscopy Images: 4. Signer Name: Kamlesh Jorgensen MD Signed: 07/18/2020 11:40 AM Workstation Name: [id number]
--- NOTE | 2020-07-18 11:50 | Post Anesthesia Evaluation ---
- Post Anesthesia Evaluation Patient Participated: Yes Airway Patent: Yes Stable Respiratory Function: Yes Nausea/Vomiting: No Temp > 96.8F: Yes Pain Manageable: Yes Adequeate Hydration: Yes Anesthesia Complications: No
== END 2020-07-18 06:24 | disposition home or self-care (01) ==
LOC: OR 06:23
PROVIDERS: ATTEND Orthopaedic Surgery
DX: M54.5 Low back pain (principal); G89.29 Other chronic pain; Z20.828 Contact with and (suspected) exposure to other viral communicable diseases; E78.00 Pure hypercholesterolemia, unspecified; I10 Essential (primary) hypertension; E66.9 Obesity, unspecified; M19.90 Unspecified osteoarthritis, unspecified site; Z79.899 Other long term (current) drug therapy; Z87.891 Personal history of nicotine dependence; E03.9 Hypothyroidism, unspecified; Z98.890 Other specified postprocedural states; Z91.81 History of falling; Z98.891 History of uterine scar from previous surgery; Z68.34 Body mass index [BMI] 34.0-34.9, adult; G62.9 Polyneuropathy, unspecified
CPT/HCPCS: 64635; 64636; 72100; A4649; J0690; J1030; J1170; J2250; J2405; J2704; J7120; Q0169; U0003

== ENCOUNTER 2020-08-06 12:14 | Outpatient (CLI) | payer BC ==
--- NOTE | 2020-08-06 16:23 | XRay Report ---
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 FINDINGS: BONES / JOINT(S): No acute fracture or subluxation. No significant arthritis. SOFT TISSUES: Mild enthesopathy at the Achilles tendon and plantar fascia insertions. ADDITIONAL FINDINGS: None. Signer Name: Mook Holguin MD Signed: 08/06/2020 4:19 PM Workstation Name: [id number]
== END 2020-08-06 12:15 | disposition home or self-care (01) ==
LOC: XRAY 12:14
PROVIDERS: ATTEND Podiatrist Foot & Ankle Surgery
DX: M77.51 Other enthesopathy of right foot and ankle (principal); G60.8 Other hereditary and idiopathic neuropathies; D49.2 Neoplasm of unspecified behavior of bone, soft tissue, and skin

== ENCOUNTER 2020-10-04 13:17 | Outpatient (CLI) | payer BC ==
[2020-10-04 14:01] LABS: Hematocrit 30.1 % (30.3-42.9); Hemoglobin 10.1 gm/dl (10.1-14.3); Mean Corpuscular HGB Conc 33 % (30-34); Mean Corpuscular Volume 86 fl (79-97); Platelet Count 281 K/mm3 (140-440); Red Cell Distribution Width 17.2 % (13.2-15.2)
[2020-10-04 14:27] LABS: Bilirubin,Urine NEG (Negative); Blood,Urine SM (Negative); Color,Urine Yellow (Yellow); Mucus,Urine FEW /HPF; Protein,Urine <15 mg/dL mg/dL (Negative); Urobilinogen,Urine < 2.0 mg/dL (<2.0)
[2020-10-04 14:46] LABS: Erythrocyte Sedimentation Rate 68 mm/Hr (0-20)
== END 2020-10-04 13:18 | disposition home or self-care (01) ==
LOC: LAB 13:17
PROVIDERS: ATTEND Internal Medicine Rheumatology
DX: M32.9 Systemic lupus erythematosus, unspecified (principal)
CPT/HCPCS: 36415; 81001; 82565; 85027; 85652